=== PATIENT | male | born 1945 | race Caucasian/White ===

== ENCOUNTER → 2020-10-23 | Outpatient (CLI) | payer OTHER ==
[~2020-10-23] MED LIST: ASPIR-LOW81 MG PO; ATENOLOL 50MG T50 M1 PO; IBUPROFEN 200200 M1 PO; PRINIVIL10 MG PO; VITAMIN D PO
== END ==
LOC: M.RAD 12:31
PROVIDERS: ATTEND Internal Medicine
DX: R76.11 Nonspecific reaction to tuberculin skin test without active tuberculosis (principal)